=== PATIENT | female | born 1970 | race Caucasian/White ===

== ENCOUNTER 2017-11-26 14:44 | Emergency (ER) | payer OTHER ==
[~2017-11-26] VITALS: Ht 162.6 cm; Wt 86.4 kg
[~2017-11-26 14:44] MED LIST: MONTELUKAST SOD10 MG PO; PREDNISONE20 MG PO; VENTOLIN HFA18 GM IH
[2017-11-26 15:33] LABS: HEMATOCRIT 39.9 % (36.0-46.0); MCH 31.5 PG (29.0-34.0); MCHC 35.1 G/DL (30.0-36.0); MCV 89.9 FL (83-99); PLATELET COUNT 257 K/uL (156-360); RBC DIS.WIDTH-CV 12.1 % (11.8-14.6); RBC DIS.WIDTH-SD 39.5 % (39-53); RED BLOOD COUNT 4.44 M/uL (3.80-5.20)
[2017-11-26 15:40] LABS: CHLORIDE 104 mEq/L (99-109); POTASSIUM 4.1 mEq/L (3.7-5.4); SODIUM 139 mEq/L (136-147)
[2017-11-26 15:42] LABS: GLUCOSE 89 mg/dL (70-99)
[2017-11-26 15:45] LABS: CREATININE 0.8 mg/dL (0.6-1.3); GFR ESTIMATE (CALCULATED) > 59 mL/min/
[2017-11-26 15:46] LABS: UREA NITROGEN (BUN) 18 mg/dL (9-23)
[2017-11-26 18:48] VITALS: BP 128/89
== END 2017-11-26 18:49 | disposition home or self-care (01) ==
LOC: EME 14:44
DX: G62.9 Polyneuropathy, unspecified (principal); J45.909 Unspecified asthma, uncomplicated; Z88.5 Allergy status to narcotic agent
CPT/HCPCS: 70450; 70551; 71046; 80048; 85027; 93005; 99281; 99284

== ENCOUNTER 2018-01-02 17:39 | Emergency (ER) | payer OTHER ==
[~2018-01-02] VITALS: Ht 162.6 cm; Wt 83.8 kg
[2018-01-02 19:30] LABS: HEMATOCRIT 40.7 % (36.0-46.0); HEMOGLOBIN 14.5 G/DL (11.9-15.5); MCH 31.5 PG (29.0-34.0); MCHC 35.6 G/DL (30.0-36.0); MCV 88.5 FL (83-99); PLATELET COUNT 278 K/uL (156-360); RBC DIS.WIDTH-SD 38.8 % (39-53); WHITE BLOOD COUNT 13.3 K/uL (4.1-10.2)
[2018-01-02 19:47] LABS: CHLORIDE 108 mEq/L (99-109); POTASSIUM 3.3 mEq/L (3.7-5.4); SODIUM 139 mEq/L (136-147)
[2018-01-02 19:48] LABS: GLUCOSE 107 mg/dL (70-99)
[2018-01-02 19:52] LABS: CREATININE 0.8 mg/dL (0.6-1.3); GFR ESTIMATE (CALCULATED) > 59 mL/min/; TROP-I INTERPRETATION NEGATIVE; TROPONIN-I < 0.01 ng/mL (0.0-0.30)
[2018-01-02 19:53] LABS: UREA NITROGEN (BUN) 13 mg/dL (9-23)
[2018-01-02] MEDS ORDERED: PREDNISONE50 MG PO (21:09)
[2018-01-02 21:35] VITALS: BP 125/78
== END 2018-01-02 21:55 | disposition home or self-care (01) ==
LOC: EME 17:39
PROVIDERS: Emergency Medicine
DX: J45.909 Unspecified asthma, uncomplicated (principal); R07.9 Chest pain, unspecified; Z90.49 Acquired absence of other specified parts of digestive tract; Z88.5 Allergy status to narcotic agent
CPT/HCPCS: 71046; 80048; 84484; 85027; 93005; 94640; 99281; 99284; J7512; J7644